=== PATIENT | male | born 1965 | race African-American/Black ===

== ENCOUNTER 2021-04-16 14:54 | Emergency (ER) | payer MEDICAID, SELFPAY ==
--- NOTE | ~2021-04-16 | CT_ITS ---
EXAMINATION: CT ABDOMEN AND PELVIS WITHOUT CONTRAST CLINICAL INFORMATION: Vomiting with abdominal distention. Evaluate for obstruction. COMPARISON: None TECHNIQUE: Multidetector volumetric imaging was performed from the superior aspect of the liver through the pubic symphysis. Sagittal and coronal reformatted images were obtained on the technologist's workstation. This CT examination was performed using dose optimization techniques as appropriate, variously including the following: *Automated exposure control. *Adjustment of mA and/or kV according to patient size (this includes techniques or standardized protocols for targeted exams where dose is matched to indication/reason for exam; i.e. extremities or head). *Use of iterative reconstruction technique. DLP: 765 mGy-cm FINDINGS: LUNG BASES: Right middle lobe noncalcified nodule measuring 0.7 cm (axial image 90/859). LIVER, GALLBLADDER, AND BILIARY TREE: The liver is normal in size and shape. Parenchymal hypoattenuation, consistent with steatosis. No focal hepatic lesion or biliary ductal dilatation is present. The gallbladder is unremarkable with no evidence of radiopaque gallstones, gallbladder wall thickening, or obvious pericholecystic inflammatory changes. PANCREAS: Unremarkable. SPLEEN: Unremarkable. ADRENAL GLANDS: Left adrenal nodule measuring 1.6 x 1.2 x 2.5 cm. This measures approximately 22 Hounsfield units. Findings are consistent with a probable adenoma. Adrenal washout CT or chemical shift MRI is recommended to help further evaluate. Unremarkable right adrenal gland. KIDNEYS AND URETERS: The kidneys are normal in size, shape, and attenuation. No hydronephrosis, hydroureter, or calculi seen. No perinephric stranding. BLADDER: Unremarkable. GASTROINTESTINAL TRACT: Fluid-filled bowel loops without any dilatation, wall thickening, or associated inflammatory change. Findings could indicate mild enteritis in the appropriate clinical setting. Nondilated, fluid-filled appendix without associated inflammatory change. No small or large bowel obstruction. PERITONEAL CAVITY: No intra-abdominal free air or free fluid. No intra-abdominal mass or organized fluid collection/abscess formation. ABDOMINAL WALL: No significant hernia is appreciated. LYMPH NODES: Normal. VASCULAR: Unremarkable. PELVIC VISCERA: The prostate and seminal vesicles are unremarkable. OSSEOUS STRUCTURES: Unremarkable. CT/CT abdomen pelvis wo con IMPRESSION: 1. Fluid-filled bowel loops without significant dilatation, wall thickening, or associated inflammatory change. No small or large bowel obstruction. Findings could indicate mild enteritis in the appropriate clinical setting. 2. Hepatic steatosis. No hepatic parenchymal lesion or biliary ductal dilatation. 3. Left adrenal nodule measuring up to 2.5 cm and 22 Hounsfield units. Findings are consistent with a probable adenoma and non-urgent follow-up adrenal washout CT or chemical shift MRI is recommended to help further evaluate. 4. No lymphadenopathy or ascites.
--- NOTE | ~2021-04-16 | XR_ITS ---
EXAMINATION: XR CHEST CLINICAL INFORMATION: Tachycardia. Vomiting. Altered sensorium. COMPARISON: Chest radiograph dated 10/07/2019. TECHNIQUE: Frontal view of the chest was obtained. FINDINGS: The lungs are clear. The cardiomediastinal silhouette is normal in size. There is no pleural effusion or pneumothorax. No acute osseous abnormality. XR/XR chest 1V IMPRESSION: No acute cardiopulmonary findings.
[2021-04-16 14:59] VITALS: BP 112/79; BP 132/76; PULSE 107; PULSE 109; RESP 18; TEMP 36.4; O2SAT 100; O2SAT 96; BMI 37.1
[2021-04-16 15:11] LABS: Glucose, Whole Blood 99 mg/dL (60-115)
--- NOTE | 2021-04-16 15:13 | ECG_ITS ---
Test Reason : HYPOGLYCEMIA Blood Pressure : / mmHG Vent. Rate : 108 BPM Atrial Rate : 108 BPM P-R Int : 170 ms QRS Dur : 098 ms QT Int : 326 ms P-R-T Axes : 044 013 020 degrees QTc Int : 436 ms Sinus tachycardia Low voltage QRS Borderline ECG When compared with ECG of 07-OCT-2019 15:09, No significant change was found Referred By: Krystle Brannon Electronically Signed By:WESTON UMANA
--- NOTE | 2021-04-16 15:13 | ED.GENADULT ---
HPI - General Adult General Chief complaint: General Medical <MEKHI Jackson Last Filed: 04/16/21 17:36> Stated complaint: AMS, LOW BLOOD SUGAR <MEKHI Jackson Last Filed: 04/16/21 17:36> Time Seen by Provider: 04/16/21 15:06 <MEKHI Jackson Last Filed: 04/16/21 17:36> Source: patient and EMS <MEKHI Jackson Last Filed: 04/16/21 17:36> Mode of arrival: EMS <MEKHI Jackson Last Filed: 04/16/21 17:36> Limitations: no limitations <MEKHI Jackson Last Filed: 04/16/21 17:36> History of Present Illness HPI narrative: 55 y/o male with history of cognitive impairment who resides at [facility], history of diabetes on insulin, schizophrenia on Clozaril, HTN who presents to the ED via EMS with altered mental status in the setting of hypoglycemia. Per EMS patient got his weekly dose of Trulicity this morning. He ate breakfast but vomited it up. He reports vomiting a couple of times. At lunch time he was found sleepy and altered. His glucose was 58. He was given oral glucose and EMS was called. Glucose for EMS was 84 with improvement in mental status. On arrival to ED glucose is 99. He denies abdominal pain and is eating. He is appropriate. <MEKHI Jackson - Last Filed: 04/16/21 17:36> MD complaint: AMS, vomiting and low blood sugar <MEKHI Jackson Last Filed: 04/16/21 17:36> Onset (ago): minute(s) <MEKHI Jackson Last Filed: 04/16/21 17:36> Location: abdomen <MEKHI Jackson Last Filed: 04/16/21 17:36> Radiation: non-radiation <MEKHI Jackson Last Filed: 04/16/21 17:36> Severity: moderate <MEKHI Jackson Last Filed: 04/16/21 17:36> Relieving factors: eating <MEKHI Jackson Last Filed: 04/16/21 17:36> Exacerbating factors: medication <MEKHI Jackson - Last Filed: 04/16/21 17:36> Associated symptoms: confusion and nausea/vomiting <MEKHI Jackson - Last Filed: 04/16/21 17:36> Treatments prior to arrival: other (glucose) <MEKHI Jackson - Last Filed: 04/16/21 17:36> Related Data Home medications: Home Medications Medication Instructions Recorded Confirmed Propanolol Hcl 20 mg PO BID 04/16/21 04/16/21 acetaminophen 325 mg tablet 650 mg PO Q4H PRN 04/16/21 04/16/21 (Tylenol) aluminum-mag hydroxide-simethicone 10 ml PO Q6H PRN 04/16/21 04/16/21 200 mg-200 mg-20 mg/5 mL oral susp aspirin 81 mg tablet 81 mg PO DAILY 04/16/21 04/16/21 benztropine 0.5 mg tablet 0.5 mg PO BID 04/16/21 04/16/21 bisacodyl 10 mg rectal suppository 10 mg VA DAILY PRN 04/16/21 04/16/21 chlorpromazine 100 mg tablet 200 mg PO BID 04/16/21 04/16/21 chlorpromazine 25 mg tablet 25 mg PO BID 04/16/21 04/16/21 clozapine 100 mg tablet 175 mg PO DAILY 04/16/21 04/16/21 clozapine 100 mg tablet (Clozaril) 250 mg PO BEDTIME 04/16/21 04/16/21 diazepam 5 mg tablet 5 mg PO BID 04/16/21 04/16/21 docusate sodium 100 mg capsule 100 mg PO BID 04/16/21 04/16/21 dulaglutide 0.75 mg/0.5 mL 0.75 mg SUBCUT QWEEK 04/16/21 04/16/21 subcutaneous pen injector (Trulicity) esomeprazole magnesium 40 mg 40 mg PO DAILY 04/16/21 04/16/21 capsule,delayed release gemfibrozil 600 mg tablet 600 mg PO BID 04/16/21 04/16/21 glucagon 1 mg solution for 1 mg IM Q20M PRN 04/16/21 04/16/21 injection (GlucaGen HypoKit) insulin aspart U-100 100 unit/mL See Protocol SUBCUT BIDAC 04/16/21 04/16/21 (3 mL) subcutaneous pen (Novolog Flexpen U-100 Insulin aspart) insulin glargine 100 unit/mL (3 25 unit SUBCUT BID 04/16/21 04/16/21 mL) subcutaneous pen (Lantus Solostar U-100 Insulin) lisinopril 5 mg tablet 5 mg PO DAILY 04/16/21 04/16/21 metformin 1,000 mg tablet 1,000 mg PO BID 04/16/21 04/16/21 ondansetron HCl 8 mg tablet 8 mg PO Q8H PRN 04/16/21 04/16/21 scopolamine base 1 mg over 3 days 1 mg TRANSDERMAL USEASDIRECTD 04/16/21 04/16/21 transdermal patch sennosides 8.6 mg capsule (senna) 8.6 mg PO BID 04/16/21 04/16/21 sodium phosphates 19 gram-7 118 ml VA DAILY PRN 04/16/21 04/16/21 gram/118 mL enema (Fleet Enema) <MEKHI Jackson - Last Filed: 04/16/21 17:36> Allergies/adverse reactions: Allergies Allergy/AdvReac Type Severity Reaction Status Date / Time No Known Allergies Allergy Unverified 05/20/20 16:54 [No Known Allergies*] <MEKHI Jackson - Last Filed: 04/16/21 17:36> Review of Systems Review of Systems: Constitutional: No Fever, No Chills ENT/Mouth: No sore throat, No Rhinorrhea, No Swallowing Difficulty Cardiovascular: No Chest Pain, No SOB, No Orthopnea, No Edema Respiratory: No Cough, No Sputum, No Wheezing, No dyspnea Gastrointestinal: + Nausea, +Vomiting, No Diarrhea, No abdominal Pain, No Hematochezia, No Melena Genitourinary: No Dysuria, No Urinary Frequency, No Hematuria Musculoskeletal: No joint pain, No Myalgias Skin: No Skin Lesions, No rash Neuro: No Weakness, No Numbness, No Dizziness, No Headache, +Confusion Psych: No Anxiety/Panic, No Depression Heme/Lymph: No Bruising, No Lymphadenopathy Endocrine: No Polyuria, No Polydipsia <MEKHI Jackson Last Filed: 04/16/21 17:36> [facility] Past Medical History Medical History: Medical History (Updated 04/16/21 @ 17:16 by MEKHI Jackson) Concussion Constipated Diabetes Disturbances of salivary secretion GERD (gastroesophageal reflux disease) Helicobacter pylori (H. pylori) HTN (hypertension) Intellectual disability Paranoid schizophrenia Personal history of COVID-19 TBI (traumatic brain injury) <MEKHI Jackson - Last Filed: 04/16/21 17:36> Social History Social History: Social History Alcohol intake: never Smoked in Last 30 Days: No Use of substances other than those prescribed or required for medical reasons: No Advance Directives: No Advance Directives Information Provided: Yes <MEKHI Jackson - Last Filed: 04/16/21 17:36> Physical Exam Vital Signs: Vital Signs: Last Vital Signs Temp 97.8 F 04/16/21 17:03 Pulse 120 H 04/16/21 17:03 Resp 18 04/16/21 17:03 BP 158/64 H 04/16/21 17:03 Pulse Ox 97 04/16/21 17:03 Body Mass Index 37.1 <MEKHI Jackson - Last Filed: 04/16/21 17:36> Vital Signs: Last Vital Signs Temp 97.8 F 04/16/21 17:03 Pulse 120 H 04/16/21 17:03 Resp 18 04/16/21 17:03 BP 158/64 H 04/16/21 17:03 Pulse Ox 97 04/16/21 17:03 Body Mass Index 37.1 <Macario Turner NP - Last Filed: 04/16/21 19:41> Appearance: Alert. Oriented X3. No acute distress. Eyes: Pupils equal, round and reactive to light. ENT: Pharynx normal. Neck: Normal inspection. Neck supple. CVS: Normal heart rate and rhythm. Pulses normal. Respiratory: No respiratory distress. Breath sounds normal. Abdomen: Round, Soft and nontender. +BS x4 Skin: Skin warm and dry. Normal skin color. Normal skin turgor. No rashes. Extremities: No lower extremity edema. Neuro: Oriented X 3. No motor deficit. No sensory deficit. <MEKHI Jackson - Last Filed: 04/16/21 17:36> Course Course Course Narrative: 55 y/o male with history of DM on insulin & Trulicity presenting with hypoglycemia, AMS and vomiting that started today. He is eating and drinking with improvement in his mental status and glucose. There have been a few cases of COVID at [facility]. He is afebrile but slightly tachcardic on arrival. He does not appear to be septic at this time. Will check COVID swab, EKG, and basic labs. <MEKHI Jackson - Last Filed: 04/16/21 17:36> Reevaluation(s) Reevaluation #1: Glucose 100's. Patient ate sandwich and juice. He was up ambulating to the bathroom with staff and vomited on the floor. Upon review of records he was admitted to [facility] in Oct 2019 for gastroenteritis associated with DERREK and electrolyte abnormalities. He has no diarrhea. Labs are pending. COVID is negative. Will place IV and give zofran and IVF. <MEKHI Jackson - Last Filed: 04/16/21 17:36> Reevaluation #2: Labs showing WBC 11.4, likely reactive from vomiting. Mg++ 1.5. Glucose 101. He continues to vomit. His abdomen is distended. He is a poor historian. Will get CT abd/pelvis to r/o obstruction. Signed out to night provider who will assume care. <MEKHI Jackson - Last Filed: 04/16/21 17:36> Reevaluation #3: Sign-out received, patient has been resting comfortably no acute distress. Pending CT CT results as noted findings consistent with mild enteritis otherwise shows nonacute findings of hepatic stenosis, no hepatic for chondral lesion or biliary duct dilation additionally left adrenal nodule measuring up to 2.5 cm and 22 hounsfield units consistent with probable adenoma and recommendation for non urgent follow-up adrenal washout CT or MRI. No lymph automated or ascites. Patient from facility will send these results with him for plan for outpatient follow-up with this. He has been eating and drinking here tolerating p.o. intake well. Plan for discharge back to facility. <Macario Turner NP - Last Filed: 04/16/21 19:41> Medical Decision Making Lab Data Result diagrams: : 04/16/21 15:25 08/14/21 15:25 <MEKHI Jackson - Last Filed: 04/16/21 17:36> Labs: Lab Results 04/16/21 04/16/21 04/16/21 Range/Units 15:05 15:25 15:25 WBC 11.4 H (4.8-10.8) X10*3/uL RBC 3.69 L (4.60-5.80) X10*6/uL Hgb 10.6 L (14.0-18.0) g/dl Hct 34.1 L (42-52) % MCV 92.4 (80-98) fL MCH 28.7 (27.0-33.0) pg MCHC 31.1 (31.0-36.0) g/dl RDW 15.1 (11.0-16.0) % Plt Count 271 (160-400) X10*3/uL MPV 9.7 (9.4-12.4) fL Immature Gran % (Auto) 0.4 (0.0-0.4) % Neut % (Auto) 82.9 H (45-73) % Lymph % (Auto) 7.3 L (20-40) % [place] % (Auto) 5.4 (2-11) % Eos % (Auto) 3.9 (0-4) % Baso % (Auto) 0.1 (0-2) % Lymph # (Auto) 0.8 L (1.2-4.9) X10*3/uL [place] # (Auto) 0.6 (0.1-1.2) X10*3/uL Eos # (Auto) 0.4 (0.0-0.4) X10*3/uL Baso # (Auto) 0.0 (0.0-0.2) X10*3/uL Abs Immat Gran (auto) 0.05 H (0.00-0.03) X10*3/uL Absolute Neuts (auto) 9.4 H (2.0-8.3) X10*3/uL Absolute Nucleated RBC 0.000 (0.0-0.012) X10*3/uL Nucleated RBC % (auto) 0.0 (0.0-0.2) /100WBC Sodium 140 (135-145) mmol/L Potassium 4.4 (3.3-5.1) mmol/L Chloride 107 (96-108) mmol/L Carbon Dioxide 21 L (22-29) mmol/L Anion Gap 16 (12-20) BUN 23 H (9-16) mg/dL Creatinine 1.01 (0.5-1.4) mg/dL Estim Creat Clear Calc 94.6 Estimated GFR > 60 POC Glucose 99 (60-115) mg/dL Random Glucose 101 (60-115) mg/dL Calcium 9.1 (8.4-10.2) mg/dL Magnesium 1.5 L (1.6-2.6) mg/dL Total Bilirubin 0.5 (0.0-1.0) mg/dL Direct Bilirubin < 0.2 (0.0-0.5) mg/dL AST 22 (5-37) U/L ALT 16 (0-40) U/L Alkaline Phosphatase 86 (39-117) U/L Total Protein 7.7 (6.5-8.0) g/dL Albumin 4.2 (3.5-5.0) g/dL Coronavirus (PCR) (Negative) Influenza Type A (PCR) (Negative) Influenza Type B (PCR) (Negative) RSV RNA Qual (PCR) (Negative) 04/16/21 04/16/21 Range/Units 15:30 16:51 WBC (4.8-10.8) X10*3/uL RBC (4.60-5.80) X10*6/uL Hgb (14.0-18.0) g/dl Hct (42-52) % MCV (80-98) fL MCH (27.0-33.0) pg MCHC (31.0-36.0) g/dl RDW (11.0-16.0) % Plt Count (160-400) X10*3/uL MPV (9.4-12.4) fL Immature Gran % (Auto) (0.0-0.4) % Neut % (Auto) (45-73) % Lymph % (Auto) (20-40) % [place] % (Auto) (2-11) % Eos % (Auto) (0-4) % Baso % (Auto) (0-2) % Lymph # (Auto) (1.2-4.9) X10*3/uL [place] # (Auto) (0.1-1.2) X10*3/uL Eos # (Auto) (0.0-0.4) X10*3/uL Baso # (Auto) (0.0-0.2) X10*3/uL Abs Immat Gran (auto) (0.00-0.03) X10*3/uL Absolute Neuts (auto) (2.0-8.3) X10*3/uL Absolute Nucleated RBC (0.0-0.012) X10*3/uL Nucleated RBC % (auto) (0.0-0.2) /100WBC Sodium (135-145) mmol/L Potassium (3.3-5.1) mmol/L Chloride (96-108) mmol/L Carbon Dioxide (22-29) mmol/L Anion Gap (12-20) BUN (9-16) mg/dL Creatinine (0.5-1.4) mg/dL Estim Creat Clear Calc Estimated GFR POC Glucose 101 (60-115) mg/dL Random Glucose (60-115) mg/dL Calcium (8.4-10.2) mg/dL Magnesium (1.6-2.6) mg/dL Total Bilirubin (0.0-1.0) mg/dL Direct Bilirubin (0.0-0.5) mg/dL AST (5-37) U/L ALT (0-40) U/L Alkaline Phosphatase (39-117) U/L Total Protein (6.5-8.0) g/dL Albumin (3.5-5.0) g/dL Coronavirus (PCR) NEGATIVE (Negative) Influenza Type A (PCR) NEGATIVE (Negative) Influenza Type B (PCR) NEGATIVE (Negative) RSV RNA Qual (PCR) NEGATIVE (Negative) <MEKHI Jackson - Last Filed: 04/16/21 17:36> Lab Results 04/16/21 04/16/21 04/16/21 Range/Units 15:05 15:25 15:25 WBC 11.4 H (4.8-10.8) X10*3/uL RBC 3.69 L (4.60-5.80) X10*6/uL Hgb 10.6 L (14.0-18.0) g/dl Hct 34.1 L (42-52) % MCV 92.4 (80-98) fL MCH 28.7 (27.0-33.0) pg MCHC 31.1 (31.0-36.0) g/dl RDW 15.1 (11.0-16.0) % Plt Count 271 (160-400) X10*3/uL MPV 9.7 (9.4-12.4) fL Immature Gran % (Auto) 0.4 (0.0-0.4) % Neut % (Auto) 82.9 H (45-73) % Lymph % (Auto) 7.3 L (20-40) % [place] % (Auto) 5.4 (2-11) % Eos % (Auto) 3.9 (0-4) % Baso % (Auto) 0.1 (0-2) % Lymph # (Auto) 0.8 L (1.2-4.9) X10*3/uL [place] # (Auto) 0.6 (0.1-1.2) X10*3/uL Eos # (Auto) 0.4 (0.0-0.4) X10*3/uL Baso # (Auto) 0.0 (0.0-0.2) X10*3/uL Abs Immat Gran (auto) 0.05 H (0.00-0.03) X10*3/uL Absolute Neuts (auto) 9.4 H (2.0-8.3) X10*3/uL Absolute Nucleated RBC 0.000 (0.0-0.012) X10*3/uL Nucleated RBC % (auto) 0.0 (0.0-0.2) /100WBC Sodium 140 (135-145) mmol/L Potassium 4.4 (3.3-5.1) mmol/L Chloride 107 (96-108) mmol/L Carbon Dioxide 21 L (22-29) mmol/L Anion Gap 16 (12-20) BUN 23 H (9-16) mg/dL Creatinine 1.01 (0.5-1.4) mg/dL Estim Creat Clear Calc 94.6 Estimated GFR > 60 POC Glucose 99 (60-115) mg/dL Random Glucose 101 (60-115) mg/dL Calcium 9.1 (8.4-10.2) mg/dL Magnesium 1.5 L (1.6-2.6) mg/dL Total Bilirubin 0.5 (0.0-1.0) mg/dL Direct Bilirubin < 0.2 (0.0-0.5) mg/dL AST 22 (5-37) U/L ALT 16 (0-40) U/L Alkaline Phosphatase 86 (39-117) U/L Total Protein 7.7 (6.5-8.0) g/dL Albumin 4.2 (3.5-5.0) g/dL Coronavirus (PCR) (Negative) Influenza Type A (PCR) (Negative) Influenza Type B (PCR) (Negative) RSV RNA Qual (PCR) (Negative) 04/16/21 04/16/21 Range/Units 15:30 16:51 WBC (4.8-10.8) X10*3/uL RBC (4.60-5.80) X10*6/uL Hgb (14.0-18.0) g/dl Hct (42-52) % MCV (80-98) fL MCH (27.0-33.0) pg MCHC (31.0-36.0) g/dl RDW (11.0-16.0) % Plt Count (160-400) X10*3/uL MPV (9.4-12.4) fL Immature Gran % (Auto) (0.0-0.4) % Neut % (Auto) (45-73) % Lymph % (Auto) (20-40) % [place] % (Auto) (2-11) % Eos % (Auto) (0-4) % Baso % (Auto) (0-2) % Lymph # (Auto) (1.2-4.9) X10*3/uL [place] # (Auto) (0.1-1.2) X10*3/uL Eos # (Auto) (0.0-0.4) X10*3/uL Baso # (Auto) (0.0-0.2) X10*3/uL Abs Immat Gran (auto) (0.00-0.03) X10*3/uL Absolute Neuts (auto) (2.0-8.3) X10*3/uL Absolute Nucleated RBC (0.0-0.012) X10*3/uL Nucleated RBC % (auto) (0.0-0.2) /100WBC Sodium (135-145) mmol/L Potassium (3.3-5.1) mmol/L Chloride (96-108) mmol/L Carbon Dioxide (22-29) mmol/L Anion Gap (12-20) BUN (9-16) mg/dL Creatinine (0.5-1.4) mg/dL Estim Creat Clear Calc Estimated GFR POC Glucose 101 (60-115) mg/dL Random Glucose (60-115) mg/dL Calcium (8.4-10.2) mg/dL Magnesium (1.6-2.6) mg/dL Total Bilirubin (0.0-1.0) mg/dL Direct Bilirubin (0.0-0.5) mg/dL AST (5-37) U/L ALT (0-40) U/L Alkaline Phosphatase (39-117) U/L Total Protein (6.5-8.0) g/dL Albumin (3.5-5.0) g/dL Coronavirus (PCR) NEGATIVE (Negative) Influenza Type A (PCR) NEGATIVE (Negative) Influenza Type B (PCR) NEGATIVE (Negative) RSV RNA Qual (PCR) NEGATIVE (Negative) <Macario Turner NP - Last Filed: 04/16/21 19:41> ECG Data Attestation: I personally reviewed and interpreted this ECG as follows: <MEKHI Jackson - Last Filed: 04/16/21 17:36> Interpretation: sinus tachycardia, HR 108, normal VA interval, normal QTC, no ST segment elevations or depressions <MEKHI Jackson - Last Filed: 04/16/21 17:36> Discharge Plan Discharge Clinical Impression: Vomiting Qualifiers: Vomiting type: unspecified Vomiting Intractability: non-intractable Nausea presence: without nausea Qualified Code(s): R11.11 - Vomiting without nausea <MEKHI Jackson - Last Filed: 04/16/21 17:36> Patient Disposition: Home, Self-Care <MEKHI Jackson - Last Filed: 04/16/21 17:36> Prescriptions: No Action acetaminophen [Tylenol] 325 mg Tablet 650 mg PO Q4H PRN (Reason: Fever) RF: 0 benztropine 0.5 mg Tablet 0.5 mg PO BID RF: 0 clozapine 100 mg Tablet 175 mg PO DAILY RF: 0 clozapine [Clozaril] 100 mg Tablet 250 mg PO BEDTIME RF: 0 chlorpromazine 100 mg Tablet 200 mg PO BID RF: 0 ondansetron HCl [Zofran] 8 mg Tablet 8 mg PO Q8H PRN (Reason: Vomiting) RF: 0 gemfibrozil 600 mg Tablet 600 mg PO BID RF: 0 bisacodyl 10 mg Suppository 10 mg VA DAILY PRN (Reason: Constipation) RF: 0 chlorpromazine 25 mg Tablet 25 mg PO BID RF: 0 metformin 1,000 mg Tablet 1,000 mg PO BID RF: 0 esomeprazole magnesium 40 mg Capsule,Delayed Release(Dr/Ec) 40 mg PO DAILY RF: 0 Fleet Enema 19-7 gram/118 mL Enema 118 ml VA DAILY PRN (Reason: Constipation) RF: 0 docusate sodium 100 mg Capsule 100 mg PO BID RF: 0 aspirin 81 mg Tablet 81 mg PO DAILY RF: 0 lisinopril 5 mg Tablet 5 mg PO DAILY RF: 0 alum-mag hydroxide-simeth [Mylanta] 200-200-20 mg/5 mL Suspension 10 ml PO Q6H PRN (Reason: Acid Reflux) RF: 0 GlucaGen HypoKit 1 mg Recon Soln 1 mg IM Q20M PRN (Reason: Hypoglycemia) RF: 0 scopolamine base 1 mg over 3 days Patch 3 Day 1 mg transdermal USEASDIRECTD RF: 0 diazepam 5 mg Tablet 5 mg PO BID RF: 0 insulin aspart U-100 [Novolog Flexpen U-100 Insulin] 100 unit/mL (3 mL) Insulin Pen See Protocol unit SUBCUT BIDAC RF: 0 senna 8.6 mg Capsule 8.6 mg PO BID RF: 0 Lantus Solostar U-100 Insulin 100 unit/mL (3 mL) Insulin Pen 25 unit SUBCUT BID RF: 0 Trulicity 0.75 mg/0.5 mL Pen Injector 0.75 mg SUBCUT QWEEK RF: 0 Propanolol Hcl 20 mg PO BID RF: 0 <MEKHI Jackson - Last Filed: 04/16/21 17:36> Interventions: ED Discharge Assessment Last Done: 04/16/21 19:00 <MEKHI Jackson - Last Filed: 04/16/21 17:36>
[2021-04-16 15:31] LABS: MANUAL DIFF FLAG NO
[2021-04-16 15:32] LABS: Basophils Percent Auto 0.1 % (0-2); Eosinophils Absolute Auto 0.4 X10*3/uL (0.0-0.4); Eosinophils Percent Auto 3.9 % (0-4); Hematocrit 34.1 % (42-52); Hemoglobin 10.6 g/dl (14.0-18.0); Imm Gran Abs Auto 0.05 X10*3/uL (0.00-0.03); Imm Gran Pct Auto 0.4 % (0.0-0.4); Lymphocytes Absolute Auto 0.8 X10*3/uL (1.2-4.9); Lymphocytes Percent Auto 7.3 % (20-40); Mean Corpuscular HGB Conc 31.1 g/dl (31.0-36.0); Mean Corpuscular Hemoglobin 28.7 pg (27.0-33.0); Mean Corpuscular Volume 92.4 fL (80-98); Mean Platelet Volume 9.7 fL (9.4-12.4); Monocytes Absolute Auto 0.6 X10*3/uL (0.1-1.2); Monocytes Percent Auto 5.4 % (2-11); Neutrophils Absolute Auto 9.4 X10*3/uL (2.0-8.3); Neutrophils Percent Auto 82.9 % (45-73); Platelet Count 271 X10*3/uL (160-400); Red Blood Count 3.69 X10*6/uL (4.60-5.80); Red Cell Distribution Width 15.1 % (11.0-16.0); White Blood Count 11.4 X10*3/uL (4.8-10.8)
[2021-04-16 15:54] LABS: Alanine Aminotransferase 16 U/L (0-40); Albumin Level 4.2 g/dL (3.5-5.0); Alkaline Phosphatase 86 U/L (39-117); Anion Gap 16 (12-20); Aspartate Amino Transferase 22 U/L (5-37); Bilirubin Direct < 0.2 mg/dL (0.0-0.5); Bilirubin Total 0.5 mg/dL (0.0-1.0); Blood Urea Nitrogen 23 mg/dL (9-16); Calcium 9.1 mg/dL (8.4-10.2); Carbon Dioxide 21 mmol/L (22-29); Chloride 107 mmol/L (96-108); Creatinine Clr Calc Pharmacy 94.6; Estimated Glomerular Filt Rate > 60; Glucose Random 101 mg/dL (60-115); Magnesium 1.5 mg/dL (1.6-2.6); Potassium 4.4 mmol/L (3.3-5.1); Sodium 140 mmol/L (135-145); Total Protein 7.7 g/dL (6.5-8.0)
[2021-04-16 16:15] LABS: Influenza A PCR NEGATIVE (Negative); Influenza B PCR NEGATIVE (Negative); Resp Syncy Virus RNA Qual PCR NEGATIVE (Negative); SARS COV2 PCR INHOUSE NEGATIVE (Negative)
--- NOTE | 2021-04-16 16:47 | PC.NURSE ---
Pt had episode of vomiting at this time, approximately 1 hr after po challenge. umair lorenz aware.
[2021-04-16 16:54] LABS: Glucose, Whole Blood 101 mg/dL (60-115)
[2021-04-16 17:03] VITALS: BP 158/64; PULSE 120; RESP 18; TEMP 36.6; O2SAT 97
[2021-04-16] MEDS: Lactated Ringers 1,000 ML 999 ML IV (17:07)
[2021-04-16] MEDS: ondansetron HCL 4 MG/2 ML VIAL IVPUSH (17:08)
[2021-04-16] MEDS: Magnesium Sulfate/H2O 2 GM/50 ML PIGGYBACK IV (17:08)
--- NOTE | 2021-04-16 17:16 | PC.NURSE ---
2nd episode of vomiting. mostly clear fluid with minimal food particles.
--- NOTE | 2021-04-16 18:59 | PC.NURSE ---
passed po challenge Report given to Eloise VANEGAS at [facility]. no questions.
== END 2021-04-16 20:09 | disposition home or self-care (01) ==
PROVIDERS: Physician Assistant; Emergency Provider Emergency Medicine; PCP Hospitalist
DX: R11.10 Vomiting, unspecified (principal); Z20.822 Contact with and (suspected) exposure to COVID-19; R41.82 Altered mental status, unspecified; R00.0 Tachycardia, unspecified; E11.9 Type 2 diabetes mellitus without complications; I10 Essential (primary) hypertension; Z79.4 Long term (current) use of insulin; Z79.899 Other long term (current) drug therapy; Z79.82 Long term (current) use of aspirin
CPT/HCPCS: 0241U; 36415; 71045; 74176; 80048; 80076; 82947; 83735; 85025; 93005; 96361; 96365; 96366; 96375; 99284; J2405; J3475

== ENCOUNTER 2021-05-20 13:04 | Emergency (ER) | payer MEDICAID, SELFPAY ==
--- NOTE | ~2021-05-20 | CT_ITS ---
EXAMINATION: CT ABDOMEN AND PELVIS WITHOUT CONTRAST CLINICAL INFORMATION: Vomiting evaluate for obstruction COMPARISON: CT abdomen from 04/16/2021 TECHNIQUE: Multidetector volumetric imaging was performed from the superior aspect of the liver through the pubic symphysis. Sagittal and coronal reformatted images were obtained on the technologist's workstation. This CT examination was performed using dose optimization techniques as appropriate, variously including the following: *Automated exposure control *Adjustment of mA and/or kV according to patient size (this includes techniques or standardized protocols for targeted exams where dose is matched to indication/reason for exam; i.e. extremities or head) *Use of iterative reconstruction technique DLP: 624.70 mGy-cm FINDINGS: LUNG BASES: Left basilar atelectasis. The heart is not enlarged. No pericardial effusion. LIVER, GALLBLADDER, AND BILIARY TREE: The liver is normal in size, shape, and attenuation. No focal hepatic lesion or biliary ductal dilatation is present. The gallbladder is unremarkable with no evidence of radiopaque gallstones, gallbladder wall thickening, or obvious pericholecystic inflammatory changes. PANCREAS: Unremarkable. SPLEEN: Unremarkable. ADRENAL GLANDS: Left adrenal adenoma stable in size measuring up to 2.3 cm with Hounsfield units of 28. Right adrenal gland is unremarkable. KIDNEYS AND URETERS: The kidneys are normal in size, shape, and attenuation. No hydronephrosis, hydroureter, or calculi seen. No perinephric stranding. BLADDER: Unremarkable. GASTROINTESTINAL TRACT: The small and large bowel are unremarkable. The appendix is not definitively visualized. No secondary signs of appendicitis. ABDOMINAL WALL: No significant hernia is appreciated. LYMPH NODES: No enlarged lymph nodes per size criteria. VASCULAR: Abdominal aorta is nonaneurysmal. Pelvic phleboliths are noted. PELVIC VISCERA: Unremarkable. OSSEOUS STRUCTURES: Multilevel degenerative changes of the thoracolumbar spine. No large lytic or blastic lesions are noted. CT/CT abdomen pelvis wo con IMPRESSION: 1. No acute process of the abdomen or pelvis identified. 2. Left adrenal adenoma, stable.
--- NOTE | 2021-05-20 13:16 | ED_ITS ---
HPI - Nausea/Vomiting/Diarrhea General Chief complaint: Nausea/Vomiting/Diarrhea Stated complaint: vomiting/diarrhea Time Seen by Provider: 05/20/21 13:15 Source: patient and EMS Mode of arrival: EMS Limitations: other (poor historian) History of Present Illness HPI Narrative: 56 yo male with hx of DM, HTN, schizophrenia, cognitive impairment reports he had n/v/d this AM. He denies pain and notes that this happens when I'm stressed or something. He was worked up in april for a similar episode MD elicited complaint: nausea, vomiting and diarrhea Onset (ago): day(s) (1) Description of vomiting: food contents Associated nausea: Yes Associated abdominal pain: No Pain consistency: intermittent Severity: mild Exacerbating factors: eating Relieving factors: none Associated symptoms: nausea/vomiting and other (diarrhea) Related Data Home Medications Medication Instructions Recorded Confirmed Propanolol Hcl 20 mg PO BID 04/16/21 04/16/21 acetaminophen 325 mg tablet 650 mg PO Q4H PRN 04/16/21 04/16/21 (Tylenol) aluminum-mag hydroxide-simethicone 10 ml PO Q6H PRN 04/16/21 04/16/21 200 mg-200 mg-20 mg/5 mL oral susp aspirin 81 mg tablet 81 mg PO DAILY 04/16/21 04/16/21 benztropine 0.5 mg tablet 0.5 mg PO BID 04/16/21 04/16/21 bisacodyl 10 mg rectal suppository 10 mg AK DAILY PRN 04/16/21 04/16/21 chlorpromazine 100 mg tablet 200 mg PO BID 04/16/21 04/16/21 chlorpromazine 25 mg tablet 25 mg PO BID 04/16/21 04/16/21 clozapine 100 mg tablet 175 mg PO DAILY 04/16/21 04/16/21 clozapine 100 mg tablet (Clozaril) 250 mg PO BEDTIME 04/16/21 04/16/21 diazepam 5 mg tablet 5 mg PO BID 04/16/21 04/16/21 docusate sodium 100 mg capsule 100 mg PO BID 04/16/21 04/16/21 dulaglutide 0.75 mg/0.5 mL 0.75 mg SUBCUT QWEEK 04/16/21 04/16/21 [facility] esomeprazole magnesium 40 mg 40 mg PO DAILY 04/16/21 04/16/21 capsule,delayed release gemfibrozil 600 mg tablet 600 mg PO BID 04/16/21 04/16/21 glucagon 1 mg solution for 1 mg IM Q20M PRN 04/16/21 04/16/21 injection (GlucaGen HypoKit) insulin aspart U-100 100 unit/mL See Protocol SUBCUT BIDAC 04/16/21 04/16/21 (3 mL) subcutaneous pen (Novolog Flexpen U-100 Insulin aspart) insulin glargine 100 unit/mL (3 25 unit SUBCUT BID 04/16/21 04/16/21 mL) subcutaneous pen (Lantus Solostar U-100 Insulin) lisinopril 5 mg tablet 5 mg PO DAILY 04/16/21 04/16/21 metformin 1,000 mg tablet 1,000 mg PO BID 04/16/21 04/16/21 ondansetron HCl 8 mg tablet 8 mg PO Q8H PRN 04/16/21 04/16/21 scopolamine base 1 mg over 3 days 1 mg TRANSDERMAL USEASDIRECTD 04/16/21 04/16/21 transdermal patch sennosides 8.6 mg capsule (senna) 8.6 mg PO BID 04/16/21 04/16/21 sodium phosphates 19 gram-7 118 ml AK DAILY PRN 04/16/21 04/16/21 gram/118 mL enema (Fleet Enema) Allergies Allergy/AdvReac Type Severity Reaction Status Date / Time No Known Allergies Allergy Unverified 05/20/20 16:54 [No Known Allergies*] Review of Systems Review of Systems: Constitutional : No Weight loss, No Fever, No Chills ENT/Mouth : No sore throat, No Rhinorrhea Eyes: No Swelling, No Redness Cardiovascular : No Chest Pain, No SOB, NoEdema Respiratory : No Cough, No Sputum, No Wheezing Gastrointestinal : Positive Nausea, Positive Vomiting, positive Diarrhea, no abdominal Pain, No Hematochezia, No Melena Genitourinary : No Dysuria, No Urinary Frequency, No Hematuria, No Urgency Musculoskeletal : No joint pain, No Myalgias, No Joint Swelling Skin : No Skin Lesions, No rash Neuro : No Weakness, No Numbness, No Dizziness, No Headache Psych : No Anxiety/Panic, No Depression Heme/Lymph: No Bruising, No Lymphadenopathy Endocrine : No Polyuria, No Polydipsia All other systems reviewed and are negative. Gastrointestinal: Gastrointestinal: Reports nausea PMFSH Past Medical History Attestation statement: The following information was validated with the patient. Medical History Concussion Constipated Diabetes Disturbances of salivary secretion GERD (gastroesophageal reflux disease) Helicobacter pylori (H. pylori) HTN (hypertension) Intellectual disability Paranoid schizophrenia Personal history of COVID-19 TBI (traumatic brain injury) Social History Social History (Updated 05/20/21 @ 13:24 by Ivory Jacobs DO) Alcohol intake: never Patient Tobacco Use Status: Refuse Tobacco use screen Advance Directives: Yes Advance Directives Information Provided: Yes Advance Directives on File: No Physical Exam Vital Signs: Vital Signs: Last Vital Signs Temp 96.9 F 05/20/21 13:40 Pulse 97 05/20/21 13:40 Resp 18 05/20/21 13:40 BP 122/72 05/20/21 13:40 Pulse Ox 97 05/20/21 13:40 Body Mass Index 32.5 Appearance: Alert. Oriented X3. No acute distress. Eyes: Pupils equal, round and reactive to light. ENT: Pharynx normal. Neck: Normal inspection. Neck supple. CVS: Normal heart rate and rhythm. Pulses normal. Respiratory: No respiratory distress. Breath sounds normal. Abdomen: Soft and nontender. Skin: Skin warm and dry. Normal skin color. Normal skin turgor. Extremities: No lower extremity edema. No calf ttp Neuro: Oriented X 3. No motor deficit. No sensory deficit. Course Course Course Narrative: chronic n/v/d per care one comes in today with c/o same CT scan and labs stable, mild anemia tolerating PO stable for DC MDM - Nausea/Vomiting/Diarrhea MDM Narrative Medical decision making narrative: 56 yo male with hx of DM, HTN, schizophrenia here with n/v/d has no abdominal ttp - at this time he isn't the best historian will obtain labs, treat symptoms, IVF , zofran, CT Scan for obstruction, dispo per results and findings. Lab Data Result diagrams: 05/20/21 14:11 05/20/21 14:11 Labs: Lab Results 05/20/21 05/20/21 05/20/21 Range/Units 14:11 14:11 14:11 WBC 10.0 (4.8-10.8) X10*3/uL RBC 3.27 L (4.60-5.80) X10*6/uL Hgb 9.5 L (14.0-18.0) g/dl Hct 30.6 L (42-52) % MCV 93.6 (80-98) fL MCH 29.1 (27.0-33.0) pg MCHC 31.0 (31.0-36.0) g/dl RDW 15.5 (11.0-16.0) % Plt Count 278 (160-400) X10*3/uL MPV 9.4 (9.4-12.4) fL Immature Gran % (Auto) 0.8 H (0.0-0.4) % Neut % (Auto) 58.5 (45-73) % Lymph % (Auto) 25.5 (20-40) % Knott % (Auto) 10.9 (2-11) % Eos % (Auto) 4.0 (0-4) % Baso % (Auto) 0.3 (0-2) % Lymph # (Auto) 2.6 (1.2-4.9) X10*3/uL Knott # (Auto) 1.1 (0.1-1.2) X10*3/uL Eos # (Auto) 0.4 (0.0-0.4) X10*3/uL Baso # (Auto) 0.0 (0.0-0.2) X10*3/uL Abs Immat Gran (auto) 0.08 H (0.00-0.03) X10*3/uL Absolute Neuts (auto) 5.9 (2.0-8.3) X10*3/uL Absolute Nucleated RBC 0.000 (0.0-0.012) X10*3/uL Nucleated RBC % (auto) 0.0 (0.0-0.2) /100WBC Sodium 138 (135-145) mmol/L Potassium 4.6 (3.3-5.1) mmol/L Chloride 104 (96-108) mmol/L Carbon Dioxide 26 (22-29) mmol/L Anion Gap 13 (12-20) BUN 9 D (9-16) mg/dL Creatinine 0.83 (0.5-1.4) mg/dL Estim Creat Clear Calc 117.1 Estimated GFR > 60 Random Glucose 72 (60-115) mg/dL Calcium 8.9 (8.4-10.2) mg/dL Magnesium 1.5 L (1.6-2.6) mg/dL Total Bilirubin 0.3 (0.0-1.0) mg/dL Direct Bilirubin < 0.2 (0.0-0.5) mg/dL AST 14 (5-37) U/L ALT 11 (0-40) U/L Alkaline Phosphatase 71 (39-117) U/L Total Protein 6.6 (6.5-8.0) g/dL Albumin 3.6 (3.5-5.0) g/dL Lipase 37 (8-78) U/L COVID-19 (RUBÉN) Negative (Negative) COVID-19 Clin Com See Note ECG Data Attestation: I personally reviewed and interpreted this ECG as follows: ECG interpretation date: 05/20/21 ECG interpretation time: 14:26 Interpretation: Rate: 93 Rhythm: NSR [place]: normal Normal P waves. Normal DAYAMI. Normal QRS complex. ST T wave : normal no MICHELLE, artifact noted qTC: normal prior studies: no acute ischemia The study has been interpreted contemporaneously by me. . Discharge Plan Discharge Clinical Impression: Hypomagnesemia Vomiting Qualifiers: Vomiting type: unspecified Vomiting Intractability: non-intractable Nausea presence: with nausea Qualified Code(s): R11.2 - Nausea with vomiting, unspecified Diarrhea Qualifiers: Diarrhea type: unspecified type Qualified Code(s): R19.7 - Diarrhea, unspecified Anemia Qualifiers: Anemia type: unspecified type Qualified Code(s): D64.9 - Anemia, unspecified Patient Disposition: Home, Self-Care Instructions: Acute Diarrhea (ED), Acute Nausea and Vomiting (ED), Anemia (ED), Hypomagnesemia (ED) Additional Instructions: return to ED for any worsening symptoms or concerns Magnesium 1.5, Hemoglobin 9.6 typical 10 to 10.5, CT scan normal Prescriptions: No Action acetaminophen [Tylenol] 325 mg Tablet 650 mg PO Q4H PRN (Reason: Fever) RF: 0 benztropine 0.5 mg Tablet 0.5 mg PO BID RF: 0 clozapine 100 mg Tablet 175 mg PO DAILY RF: 0 clozapine [Clozaril] 100 mg Tablet 250 mg PO BEDTIME RF: 0 chlorpromazine 100 mg Tablet 200 mg PO BID RF: 0 ondansetron HCl [Zofran] 8 mg Tablet 8 mg PO Q8H PRN (Reason: Vomiting) RF: 0 gemfibrozil 600 mg Tablet 600 mg PO BID RF: 0 bisacodyl 10 mg Suppository 10 mg AK DAILY PRN (Reason: Constipation) RF: 0 chlorpromazine 25 mg Tablet 25 mg PO BID RF: 0 metformin 1,000 mg Tablet 1,000 mg PO BID RF: 0 esomeprazole magnesium 40 mg Capsule,Delayed Release(Dr/Ec) 40 mg PO DAILY RF: 0 Fleet Enema 19-7 gram/118 mL Enema 118 ml AK DAILY PRN (Reason: Constipation) RF: 0 docusate sodium 100 mg Capsule 100 mg PO BID RF: 0 aspirin 81 mg Tablet 81 mg PO DAILY RF: 0 lisinopril 5 mg Tablet 5 mg PO DAILY RF: 0 alum-mag hydroxide-simeth [Mylanta] 200-200-20 mg/5 mL Suspension 10 ml PO Q6H PRN (Reason: Acid Reflux) RF: 0 GlucaGen HypoKit 1 mg Recon Soln 1 mg IM Q20M PRN (Reason: Hypoglycemia) RF: 0 scopolamine base 1 mg over 3 days Patch 3 Day 1 mg transdermal USEASDIRECTD RF: 0 diazepam 5 mg Tablet 5 mg PO BID RF: 0 insulin aspart U-100 [Novolog Flexpen U-100 Insulin] 100 unit/mL (3 mL) Insulin Pen See Protocol unit SUBCUT BIDAC RF: 0 senna 8.6 mg Capsule 8.6 mg PO BID RF: 0 Lantus Solostar U-100 Insulin 100 unit/mL (3 mL) Insulin Pen 25 unit SUBCUT BID RF: 0 Trulicity 0.75 mg/0.5 mL Pen Injector 0.75 mg SUBCUT QWEEK RF: 0 Propanolol Hcl 20 mg PO BID RF: 0 Referrals: Santino Flood DO [Primary Care Provider] - 2 days
--- NOTE | 2021-05-20 13:18 | ECG_ITS ---
Test Reason : NASEAU Blood Pressure : / mmHG Vent. Rate : 093 BPM Atrial Rate : 093 BPM P-R Int : 172 ms QRS Dur : 090 ms QT Int : 344 ms P-R-T Axes : 044 008 014 degrees QTc Int : 427 ms Normal sinus rhythm Normal ECG When compared with ECG of 16-APR-2021 15:21, No significant change was found Referred By: Ivory Jacobs Electronically Signed By:WESTON UMANA
[2021-05-20 13:40] VITALS: BP 122/72; PULSE 97; RESP 18; TEMP 36.1; O2SAT 97; BMI 32.5
--- NOTE | 2021-05-20 14:00 | PC.NURSE ---
Pt alert, oriented to self. pt c/o n/v/d that has been happening for a while now. pt denies headache/dizziness/sob. no other symptoms reported.
[2021-05-20 14:14] LABS: MANUAL DIFF FLAG NO
[2021-05-20] MEDS: ondansetron HCL 4 MG/2 ML VIAL IVPUSH (14:22)
[2021-05-20 14:24] LABS: Basophils Percent Auto 0.3 % (0-2); Eosinophils Absolute Auto 0.4 X10*3/uL (0.0-0.4); Hematocrit 30.6 % (42-52); Hemoglobin 9.5 g/dl (14.0-18.0); Imm Gran Abs Auto 0.08 X10*3/uL (0.00-0.03); Imm Gran Pct Auto 0.8 % (0.0-0.4); Lymphocytes Absolute Auto 2.6 X10*3/uL (1.2-4.9); Lymphocytes Percent Auto 25.5 % (20-40); Mean Corpuscular Hemoglobin 29.1 pg (27.0-33.0); Mean Corpuscular Volume 93.6 fL (80-98); Mean Platelet Volume 9.4 fL (9.4-12.4); Monocytes Absolute Auto 1.1 X10*3/uL (0.1-1.2); Monocytes Percent Auto 10.9 % (2-11); Neutrophils Absolute Auto 5.9 X10*3/uL (2.0-8.3); Neutrophils Percent Auto 58.5 % (45-73); Platelet Count 278 X10*3/uL (160-400); Red Blood Count 3.27 X10*6/uL (4.60-5.80); Red Cell Distribution Width 15.5 % (11.0-16.0)
[2021-05-20] MEDS: 0.9 % Sodium Chloride 1,000 ML 999 ML IVCONT ×2 (14:26→14:38)
[2021-05-20 14:31] LABS: COVID-19 Test Negative (Negative); IDNOW Serial# 9DD0AD1C
[2021-05-20 14:46] LABS: Alanine Aminotransferase 11 U/L (0-40); Albumin Level 3.6 g/dL (3.5-5.0); Alkaline Phosphatase 71 U/L (39-117); Anion Gap 13 (12-20); Aspartate Amino Transferase 14 U/L (5-37); Bilirubin Direct < 0.2 mg/dL (0.0-0.5); Bilirubin Total 0.3 mg/dL (0.0-1.0); Blood Urea Nitrogen 9 mg/dL (9-16); Calcium 8.9 mg/dL (8.4-10.2); Carbon Dioxide 26 mmol/L (22-29); Chloride 104 mmol/L (96-108); Creatinine Clr Calc Pharmacy 117.1; Estimated Glomerular Filt Rate > 60; Glucose Random 72 mg/dL (60-115); Lipase 37 U/L (8-78); Magnesium 1.5 mg/dL (1.6-2.6); Potassium 4.6 mmol/L (3.3-5.1); Sodium 138 mmol/L (135-145); Total Protein 6.6 g/dL (6.5-8.0)
[2021-05-20] MEDS: Magnesium Sulfate/H2O 2 GM/50 ML PIGGYBACK IV (15:29)
[2021-05-20 15:39] VITALS: BP 135/72; PULSE 95; RESP 16; TEMP 36.4; O2SAT 99
== END 2021-05-20 17:26 | disposition home or self-care (01) ==
PROVIDERS: Emergency Provider Emergency Medicine; PCP Hospitalist
DX: E83.42 Hypomagnesemia (principal); R11.2 Nausea with vomiting, unspecified; R19.7 Diarrhea, unspecified; I10 Essential (primary) hypertension; E11.9 Type 2 diabetes mellitus without complications; D64.9 Anemia, unspecified; Z20.822 Contact with and (suspected) exposure to COVID-19; Z79.899 Other long term (current) drug therapy
CPT/HCPCS: 36415; 74176; 80048; 80076; 83690; 83735; 85025; 87635; 93005; 96361; 96365; 96375; 99284; J2405; J3475

== ENCOUNTER 2021-11-14 12:31 | Outpatient (REF) | payer MEDICAID, SELFPAY ==
--- NOTE | ~2021-11-14 | CT_ITS ---
EXAMINATION: CT ABDOMEN WITHOUT CONTRAST CLINICAL INFORMATION: Left adrenal adenoma COMPARISON: Previous CT scans of the abdomen and pelvis AprilMay 2021 TECHNIQUE: Contiguous axial thin section helical images of the abdomen were performed without contrast. The data set was reformatted in the coronal and sagittal planes and reviewed on an independent workstation. This CT examination was performed using dose optimization techniques as appropriate, variously including the following: *Automated exposure control *Adjustment of mA and/or kV according to patient size (this includes techniques or standardized protocols for targeted exams where dose is matched to indication/reason for exam; i.e. extremities or head) *Use of iterative reconstruction technique DLP: 291 mGy-cm FINDINGS: LUNG BASES: Normal LIVER, GALLBLADDER, BILIARY TREE: Normal PANCREAS: Normal SPLEEN: Normal ADRENAL GLANDS AND KIDNEYS: There is a 1 x 1.5 cm lesion in the left adrenal gland that is stable. Hounsfield units measure 19 and again this probably represents a benign adenoma. The right adrenal gland is normal. The kidneys are normal. BOWEL LOOPS: There is stool throughout the colon suggestive of constipation. There is a small umbilical hernia containing fat. LYMPH NODES: Normal. VASCULAR: Unremarkable. BONES: There are degenerative changes of the spine. CT/CT abdomen wo con IMPRESSION: Stable left adrenal lesion probably representing an adenoma. Constipation. Fleischner guidelines were followed.
== END 2021-11-14 12:32 | disposition home or self-care (01) ==
LOC: HO.CT 12:31
PROVIDERS: PCP Hospitalist; Visit Provider Hospitalist
DX: D35.02 Benign neoplasm of left adrenal gland (principal)
CPT/HCPCS: 74150

== ENCOUNTER 2022-05-02 10:09 | Outpatient (REF) | payer MEDICAID, SELFPAY ==
--- NOTE | ~2022-05-02 | CT_ITS ---
EXAMINATION: CT ABDOMEN WITHOUT AND WITH CONTRAST CLINICAL INFORMATION: Adrenal adenoma. COMPARISON: CT abdomen without contrast 11/14/2021. TECHNIQUE: Contiguous axial thin section helical images of the abdomen were performed before and after the administration of 85 mL of Omnipaque 350 intravenous contrast. The data set was reformatted in the coronal and sagittal planes and reviewed on an independent workstation. This CT examination was performed using dose optimization techniques as appropriate, variously including the following: *Automated exposure control *Adjustment of mA and/or kV according to patient size (this includes techniques or standardized protocols for targeted exams where dose is matched to indication/reason for exam; i.e. extremities or head) *Use of iterative reconstruction technique DLP: 517 mGy-cm FINDINGS: There is patient motion artifact limiting upper abdomen evaluation. LUNG BASES: Minimal atelectasis is seen in both lung bases. LIVER, GALLBLADDER, AND BILIARY TREE: The liver is homogeneous in density, normal size and position. No focal lesion or intrahepatic ductal dilatation seen. The gallbladder is contracted. PANCREAS: The pancreas is homogeneous in density and normal size. No focal lesion seen. SPLEEN: The spleen is unremarkable. ADRENAL GLANDS AND KIDNEYS: The right adrenal gland is normal. There is a 1.4 x 1.0 cm left adrenal lesion. Precontrast it measures 20 Hounsfield units, immediate postcontrast image it measures 92 Hounsfield units, and delayed 10-minute image measures 41 Hounsfield units. Both kidney nephrograms are normal size, contour and position. No focal lesion or hydronephrosis seen. There are no radiopaque renal calculi. BOWEL LOOPS: Moderate stool is seen throughout the colon without distention. The small bowel loops are normal caliber. No inflammatory process seen. LYMPH NODES: Normal. VASCULAR: Unremarkable. BONES: No lytic or sclerotic process seen. There is moderate ventral spondylosis mid lumbar and lower dorsal spine. CT/CT abdomen wo/w IV con IMPRESSION: 1.4 cm left adrenal lesion. Absolute washout is 70.8% and relative washout is 55.4% consistent with benign adenoma. Normal right adrenal gland. [id number] constipation. Minimal bibasilar atelectatic changes. Fleischner guidelines were followed.
[2022-05-02] MEDS: iohexoL 350 MG/ML 100 ML INFUS..BTL IV (11:44)
== END 2022-05-02 10:10 | disposition home or self-care (01) ==
LOC: HO.CT 10:09
PROVIDERS: PCP Hospitalist; Visit Provider Hospitalist
DX: D35.02 Benign neoplasm of left adrenal gland (principal)
CPT/HCPCS: 74170; Q9967

== ENCOUNTER 2022-12-13 14:14 | Outpatient (REF) | payer MEDICAID, SELFPAY ==
--- NOTE | ~2022-12-13 | CT_ITS ---
EXAMINATION: CT ABDOMEN WITHOUT AND WITH CONTRAST CLINICAL INFORMATION: Umbilical hernia. Left adrenal adenoma. COMPARISON: 05/02/2022. TECHNIQUE: Contiguous axial thin section helical images of the abdomen were performed before and after the administration of oral contrast and 85 mL of Omnipaque 350 intravenous contrast. The data set was reformatted in the coronal and sagittal planes and reviewed on an independent workstation. This CT examination was performed using dose optimization techniques as appropriate, variously including the following: *Automated exposure control *Adjustment of mA and/or kV according to patient size (this includes techniques or standardized protocols for targeted exams where dose is matched to indication/reason for exam; i.e. extremities or head) *Use of iterative reconstruction technique DLP: 952 mGy-cm FINDINGS: LUNG BASES: No suspicious lung nodules. LIVER, GALLBLADDER, AND BILIARY TREE: The liver is homogeneous in attenuation. No biliary ductal dilatation or discrete mass. The gallbladder is contracted. PANCREAS: The pancreas is somewhat obscured by motion artifact but grossly normal with no discrete mass or ductal dilatation. SPLEEN: Spleen appears normal. ADRENAL GLANDS AND KIDNEYS: Stable 1.5 cm nodule in the left adrenal gland. Precontrast attenuation 23, immediate postcontrast attenuation 70, delayed 10 minute attenuation 38. Absolute washout 60%, relative washout 40%. Findings consistent with a benign adenoma. The kidneys appear normal. No hydronephrosis or nephrolithiasis. BOWEL LOOPS: There is no significant hernia. There is some limitation in evaluation of the included bowel segments due to significant motion artifact. There is no evidence of bowel obstruction. LYMPH NODES: No lymphadenopathy. VASCULAR: No aortic aneurysm. BONES: Degenerative changes in the spine. CT/CT abdomen wo/w IV con IMPRESSION: Stable 1.5 cm left adrenal adenoma. No imaging follow-up is recommended. No significant hernia seen. Fleischner guidelines were followed.
[2022-12-13] MEDS: iohexoL 350 MG/ML 100 ML INFUS..BTL 85 ML IV (15:53)
[2022-12-15 13:37] LABS: Creatinine POC 0.6 mg/dL (0.5-1.4); GFR POC > 60
== END 2022-12-13 14:15 | disposition home or self-care (01) ==
LOC: HO.CT 14:14
PROVIDERS: Visit Provider Hospitalist
DX: D35.02 Benign neoplasm of left adrenal gland (principal); K42.9 Umbilical hernia without obstruction or gangrene
CPT/HCPCS: 74170; 82565; Q9967

== ENCOUNTER 2023-06-19 07:52 | Outpatient (REF) | payer MEDICAID, SELFPAY ==
--- NOTE | ~2023-06-19 | CT_ITS ---
EXAMINATION: CT ABDOMEN WITHOUT AND WITH CONTRAST CLINICAL INFORMATION: 6 month follow-up left adrenal adenoma. COMPARISON: CT abdomen 12/13/2022 and earlier examinations. TECHNIQUE: CT of the abdomen was performed without and with contrast using adrenal protocol. 85 mL of Omnipaque 300 intravenous contrast. DOSE LOWERING TECHNIQUES: This CT examination was performed using dose optimization techniques as appropriate, variously including the following: - Automated exposure control - Adjustment of mA and/or kV according to patient size (this includes techniques or standardized protocols for targeted exams where dose is matched to indication/reason for exam; i.e. extremities or head) - Use of iterative reconstruction technique DLP: 568 mGy-cm FINDINGS: LUNG BASES: Minor scarring in the medial aspect of the right lower lobe adjacent to prominent spinal osteophytes. LIVER, GALLBLADDER, AND BILIARY TREE: The liver is homogeneous in attenuation. No discrete liver mass. No ductal dilatation. The gallbladder is contracted. PANCREAS: No discrete pancreatic mass. No pancreatic ductal dilatation. SPLEEN: Normal. ADRENAL GLANDS: ADRENAL: Right adrenal: Normal. No adrenal nodule. Left adrenal: Stable 1.3 x 1.2 cm nodule in the left adrenal gland. 83 The left adrenal mass density measurements are: 1. Non-contrast: 17 HU. 2. Portal venous phase: 83 HU. 3. Delayed phase: 40 HU. 4. Absolute washout is: 65%. Greater than 60% is consistent with an adenoma. 5. Relative washout is: 52%. Greater than 40% is consistent with an adenoma. KIDNEYS AND URETERS: The kidneys are normal in size, shape, and attenuation. No hydronephrosis, hydroureter, or calculi seen. No perinephric stranding. GASTROINTESTINAL TRACT: The visible small and large bowel appear normal. ABDOMINAL WALL: Small periumbilical fat-containing hernia. LYMPH NODES: No lymphadenopathy. VASCULAR: No aortic aneurysm. OSSEOUS STRUCTURES: Degenerative changes in the spine. CT/CT abdomen wo/w IV con IMPRESSION: Stable left adrenal adenoma. No follow-up imaging is recommended. If there is a clinical indication to continue to follow this adrenal nodule, recommend following with CT abdomen without contrast to minimize radiation dose associated with multiphase imaging and avoid unnecessary intravenous contrast.
[2023-06-19] MEDS: iohexoL 350 MG/ML 100 ML INFUS..BTL IV (09:21)
[2023-06-20 07:10] LABS: Creatinine POC 0.4 mg/dL (0.5-1.4); GFR POC 60
== END 2023-06-19 07:53 | disposition home or self-care (01) ==
LOC: HO.CT 07:52
PROVIDERS: PCP Hospitalist; Visit Provider Hospitalist
DX: D35.00 Benign neoplasm of unspecified adrenal gland (principal); K42.9 Umbilical hernia without obstruction or gangrene
CPT/HCPCS: 74170; 82565; Q9967

== ENCOUNTER 2024-02-01 13:27 | Outpatient (REF) | payer MEDICAID, SELFPAY ==
--- NOTE | ~2024-02-01 | CT_ITS ---
EXAMINATION: CT ABDOMEN WITHOUT CONTRAST CLINICAL INFORMATION: Umbilical hernia containing fat. Stable left adrenal adenoma COMPARISON: Multiple CT scans of the abdomen and pelvis most recently 06/19/2023. TECHNIQUE: Contiguous axial thin section helical images of the abdomen were performed without contrast. The data set was reformatted in the coronal and sagittal planes and reviewed on an independent workstation. This CT examination was performed using dose optimization techniques as appropriate, variously including the following: *Automated exposure control *Adjustment of mA and/or kV according to patient size (this includes techniques or standardized protocols for targeted exams where dose is matched to indication/reason for exam; i.e. extremities or head) *Use of iterative reconstruction technique DLP: 301 mGy-cm FINDINGS: LUNG BASES: The visualized lung bases are unremarkable. LIVER, GALLBLADDER, AND BILIARY TREE: The liver is normal in size, shape, and attenuation. No focal hepatic lesion or biliary ductal dilatation is present. The gallbladder is unremarkable with no evidence of radiopaque gallstones, gallbladder wall thickening, or obvious pericholecystic inflammatory changes. PANCREAS: Unremarkable. SPLEEN: Unremarkable. ADRENAL GLANDS: Again seen is a tiny 1.2 cm left adrenal nodule that measures water density cyst with a benign adenoma. There is no indication for follow-up of this finding. The right adrenal is normal. KIDNEYS AND URETERS: The kidneys are normal in size, shape, and attenuation. No hydronephrosis, hydroureter, or calculi seen. No perinephric stranding. GASTROINTESTINAL TRACT: The small and large bowel are unremarkable. The appendix is unremarkable. ABDOMINAL WALL: Tiny faint periumbilical hernia seen containing only fat LYMPH NODES: No retroperitoneal lymphadenopathy. VASCULAR: Unremarkable. OSSEOUS STRUCTURES: Some mild degenerative changes are present in the spine. CT/CT abdomen wo IV con IMPRESSION: 1. A cause for the patient's abdominal pain has not been found. 2. Incidental note made of a stable benign left adrenal adenoma which needs no further follow-up. 3. Tiny periumbilical hernia containing only fat. Fleischner guidelines were followed.
== END 2024-02-01 13:28 | disposition home or self-care (01) ==
LOC: HO.CT 13:27
PROVIDERS: PCP Hospitalist; Visit Provider Hospitalist
DX: K42.9 Umbilical hernia without obstruction or gangrene (principal)
CPT/HCPCS: 74150